=== PATIENT | female | born 1965 | race Caucasian/White ===

== ENCOUNTER 2019-09-22 14:13 | Emergency (ER) | payer MEDICAID ==
[2019-09-22] MEDS ORDERED: Famotidine 20 MG/2 ML SDV IVPUSH ONE (14:14)
--- NOTE | 2019-09-22 14:14 | EDM.PDOC ---
ED HPI GENERAL MEDICAL PROBLEM - General Chief Complaint: Neuro Symptoms/Deficits Stated Complaint: stroke code Time Seen by Provider: 09/22/19 14:14 Source of Information: Reports: Patient, EMS, EMS Notes Reviewed, Significant Other ([place]), Other (Dwayne; [facility]). Denies: Old Records (No [facility] records available) History Limitations: Reports: Altered Mental Status - History of Present Illness INITIAL COMMENTS - FREE TEXT/NARRATIVE: The patient was brought to the emergency room via ambulance with EMT accompaniment with stat Accu-Chek of 77 mg percent prior to arrival to this facility. No other treatment or evaluation were given in route. The patient is an extremely poor historian secondary to her current mental status with multiple nonspecific complaints, including mild diffuse nonspecific headache, intermittent chronic left upper upper chest wall discomfort, and history of possible melena about 3 days ago likely secondary to Pepto-Bismol, which was taken for some mild diarrhea at that time. Majority of the history was taken from her significant other and loss as above the patient was picking up trash as per routine work responsibilities with sudden onset infusion and some combativeness starting at about 13:15 hours this was observed by her significant other and multiple coworkers with no history of fall, head injury, seizure activity, urine/stool incontinence, etc. Her history from her significant other the patient had similar type symptoms about 2 weeks ago and was hospitalized at [facility] in [place] at that time. The patient apparently had a negative COVID-19 screen during that hospitalization. She denies any abdominal pain, UTI symptoms, nausea, recurrence of diarrhea, etc. this time. The patient also denies any recent fever, cough, wheezing, dyspnea, etc.. She denies any recent medication noncompliance with apparent meditation changes during the above hospitalization one week ago. Onset: Today, Sudden Onset Date: 09/22/19 Onset Time: 13:15 Duration: Constant Location: Reports: Head, Chest. Denies: Face, Neck, Abdomen, Back, Upper Extremity, Left, Upper Extremity, Right, Radiates to Quality: Reports: Ache, Same as Previous Episode Severity: Moderate Improves with: Reports: None Worsens with: Reports: None Context: Reports: Other (As above). Denies: Sick Contact, Trauma Associated Symptoms: Reports: Confusion, Chest Pain. 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 Cardiovascular History: Reports: Heart Murmur Gastrointestinal History: Reports: Bowel Obstruction, Pancreatitis, Other (See Below) Other Gastrointestinal History: Bowel obstruction in 2016 requiring surgery as below. OUTSIDE COLLECTOR History: Reports: Dysfunctional Uterine Bleeding, Fibroids, LMP (Approximate): Other (See Below) Other OUTSIDE COLLECTOR History: Surgical menopause secondary to uterine fibroids and ovarian cysts. Musculoskeletal History: Reports: Arthritis, Fracture, Osteoarthritis, Other ( See Below) Other Musculoskeletal History: Left tibial and fibular shaft fractures on requiring surgery as below. Left radial neck elbow fracture in 2019. Neurological History: Reports: Neuropathy, Peripheral, Other (See Below) Other Neuro History: Acute encephalopathy secondary to OTC medications in August 2019 as below Psychiatric History: Reports: Addiction, Anxiety, Bipolar, Depression, Psych Hospitalization(s), Psychosis, Other (See Below) Other Psychiatric History: Last hospitalization in [facility] for bipolar disorder in August 2019. Previous history of inpatient alcohol treatment. History of alcohol and substance abuse with no alcohol use since 2015. OTC medication abuse including dextromethorphan according hospitalization in August 2019 with acute encephalopathy at that time. Endocrine/Metabolic History: Reports: Osteopenia, Other (See Below) Other Endocrine/Metabolic History: Severe hyponatremia with secondary confusion. Hematologic History: Reports: Anemia, Iron Deficiency - Past Surgical History HEENT Surgical History: Reports: Oral Surgery, Other (See Below) Other HEENT Surgeries/Procedures: Complete teeth extraction. GI Surgical History: Reports: Bariatric Procedure, Cholecystectomy, Colon, Other (See Below) Other GI Surgeries/Procedures: Gastric bypass procedure. Unknown type of colon surgery for bowel obstruction in September 2015. Female Surgical History: Reports: Hysterectomy, Other (See Below) Other Female Surgeries/Procedures: Hysterectomy in about 2011 secondary to uterine fibroids. Musculoskeletal Surgical History: Reports: ORIF, Other (See Below) Other Musculoskeletal Surgeries/Procedures:: ORIF including sandy placement of tibial and fibular fracture on 12/05/18. - Past Imaging History Past Imaging History: Reports: CAT Scan (Last CT of the head on 09/07/19 with previous evaluations on 09/02/19, 07/31/18, and 09/11/13.), Mammogram (Last on ), Ultrasound (Pelvic ultrasound on 11/25/11) ED ROS GENERAL - Review of Systems Review Of Systems: Unable To Obtain Reason Not Obtained: Patient confusion as below. ED EXAM, NEURO - Physical Exam Exam: See Below Exam Limited By: Altered Mental Status General Appearance: Alert, Anxious (Mild to moderate) Eye Exam: Bilateral Eye: EOMI, Normal Fundi (Soft contact lenses. No nystagmus) , Normal Inspection, PERRL Ears: Normal External Exam, Normal Canal, Hearing Grossly Normal, Normal TMs Nose: Normal Inspection, Normal Mucosa, No Blood Throat/Mouth: Normal Inspection, Normal Lips, Normal Gums, Normal Oropharynx, Normal Voice, No Airway Compromise. No: Normal Teeth (Complete dentures uppers and lowers), Dysphagia, Inflammation, Perioral Cyanosis Head Exam: Atraumatic, Normocephalic. No: Facial Swelling, Facial Tenderness, Sinus Tenderness Neck: Normal Inspection, Supple, Non-Tender, Full Range of Motion, Carotid Bruit (Mild bilateral carotid bruits versus transmitted heart sounds). No: Lymphadenopathy (L), Lymphadenopathy (R), Thyromegaly Respiratory/Chest: No Respiratory Distress, Lungs Clear, Normal Breath Sounds, No Accessory Muscle Use, Chest Non-Tender. No: Pleural Rub, Accessory Muscle Use, Retractions Cardiovascular: Normal Peripheral Pulses, No Edema, No Gallop, No JVD, No Rub, Tachycardia (Regular rhythm), Systolic Murmur (Mild 1/6 TRISTON of the aortic valve) . No: No Murmur, Gallop/S3, Gallop/S4 GI/Abdominal: Normal Bowel Sounds, Soft, Non-Tender, No Organomegaly, No Distention, No Abnormal Bruit, No Mass, Pelvis Stable, Other (Obese). No: Guarding (Female) Exam: Deferred Rectal (Female) Exam: Normal Rectal Tone, Heme - Stool, Hemorrhoids (Grade 12 internal/external). No: Black Stool, Bloody Stool, Fecal Impaction, Mass, Perirectal Abscess, Tenderness (No David space tenderness) Neurological: Alert, Normal Dorsiflexion, CN II-XII Intact, Normal Plantar Flexion, Normal Reflexes, Abnormal Gait (Unsteadinessmild), Other (Negative finger to nose and pronation rotators tests with excellent reverse thought processes. Oriented to person, month and year only. Some Log[place], confusion, and borderline psychosis. No hemiparesis noted, including in the facial region.) . No: Normal Mood/Affect (Mild to moderate anxiety and praying throughout the visit), Oriented x 3, Abnormal Finger to Nose, Babinski, Tremor Back Exam: Normal Inspection, Full Range of Motion. No: CVA Tenderness (L), CVA Tenderness (R), Muscle Spasm Extremities: Normal Inspection, Normal Range of Motion, Non-Tender, No Pedal Edema, Normal Capillary Refill. No: Saira's Sign Psychiatric: Anxious (Mild to moderate) Skin Exam: Warm, Dry, Intact, Normal Color, No Rash. No: Diaphoretic, Wound/ Incision EKG INTERPRETATION EKG Date: 09/22/19 Time: 14:24 Rhythm: Other (Sinus tachycardia) Rate (Beats/Min): 109 [place]: Normal (Neutral) P-Wave: Enlarged (Diffuse biphasic P wavesmoderate) QRS: RBBB (QRS interval of 0.14 seconds representing a complete right bundle branch block/bifascicular bundle-branch block) ST-T: Other (T inversion in leads V1 and V2) QT: Normal ID/PQ Interval: 0.16 seconds with pulmonary hypertension by EKG Comparison: NA - No Prior EKG EKG Interpretation Comments: 1. Sinus tachycardia 2. Complete right bundle branch block/bifascicular bundle-branch block 3. Borderline anterior wall ischemia 4. Left atrial enlargement Course - Vital Signs Last Recorded V/S: See Stroke Code Sheet - Orders/Labs/Meds Orders: Active Orders 24 hr Category Date Time Status Blood Glucose Check, Bedside [RC] STAT Care 09/22/19 14:14 Active Cardiac Monitoring [RC] STAT Care 09/22/19 14:14 Active Communication Order [RC] PER UNIT ROUTINE Care 09/22/19 14:14 Active EKG Documentation Completion [RC] ASDIRECTED Care 09/22/19 14:14 Active NIH Stroke Scale [RC] ASDIRECTED Care 09/22/19 14:14 Active Oxygen Therapy, ED [RC] CONTINUOUS Care 09/22/19 14:14 Active Peripheral IV Care [RC] . DIRECTED Care 09/22/19 14:14 Active Pulse Oximetry [RC] CONTINUOUS Care 09/22/19 14:14 Active Up With Assistance [RC] ASDIRECTED Care 09/22/19 14:14 Active Vital Signs [RC] PFP Care 09/22/19 14:14 Active Nothing per Oral Now Diet [DIET] Diet 09/22/19 Breakfast Active Chest 1V Frontal [CR] Stat Exams 09/22/19 14:14 Taken Head wo Cont [CT] Stat Exams 09/22/19 14:14 Taken CULTURE BLOOD [BC] Stat Lab 09/22/19 14:15 Received CULTURE BLOOD [BC] Stat Lab 09/22/19 15:05 Received CULTURE URINE [RM] Routine Lab 09/22/19 14:40 Received PROLACTIN [REF] Stat Lab 09/22/19 14:15 Received Sodium Chloride 0.9% [Normal Saline] 1,000 ml Med 09/22/19 16:00 Active IV ASDIRECTED Sodium Chloride 0.9% [Saline Flush] Med 09/22/19 14:14 Active 10 ml FLUSH ASDIRECTED PRN Blood Culture x2 Reflex Set [OM.PC] Urgent Oth 09/22/19 14:56 Ordered Obtain Past Medical Record [OM.PC] Stat Oth 09/22/19 14:14 Active Peripheral IV Insertion Adult [OM.PC] Stat Oth 09/22/19 14:14 Ordered Resuscitation Status Stat Resus Stat 09/22/19 14:14 Ordered Medication Orders Sodium Chloride (Normal Saline) 1,000 mls @ 100 mls/hr IV ASDIRECTED HEIDI Sodium Chloride (Saline Flush) 10 ml FLUSH ASDIRECTED PRN PRN Reason: Keep Vein Open Last Admin: 09/22/19 15:35 Dose: 10 ml Admin: 09/22/19 14:28 Dose: 10 ml Labs: Laboratory Tests 09/22/19 09/22/19 09/22/19 Range/Units 14:15 14:15 14:15 WBC 12.0 H (4.0-10.2) K/uL RBC 3.43 L (3.77-5.09) M/uL Hgb 7.4 L* (11.7-15.5) g/dL Hct 24.4 L* (34.0-46.0) % MCV 71.1 L (84.0-98.0) fL MCH 21.6 L (28.2-33.3) pg MCHC 30.3 L (31.7-36.0) g/dL RDW 18.7 H (11.2-14.1) % Plt Count 498 H (150-350) K/uL Neut % (Auto) 85.8 H (45.0-80.0) % Lymph % (Auto) 7.9 L (10.0-50.0) % Sw[place] % (Auto) 6.1 (2.0-14.0) % Eos % (Auto) 0.0 (0.0-5.0) % Baso % (Auto) 0.2 (0.0-2.0) % Neut # (Auto) 10.33 H (1.40-7.00) K/uL Lymph # (Auto) 0.95 (0.50-3.50) K/uL Swain # (Auto) 0.74 (0.00-1.00) K/uL Eos # (Auto) 0.00 (0.00-0.50) K/uL Baso # (Auto) 0.02 (0.00-0.20) K/uL PT 9.4 L (9.5-12.0) SEC INR 0.9 APTT 26.8 (24.5-32.8) SEC D-Dimer, Quantitative 388 (0-400) ng/mL Sodium (136-145) mmol/L Potassium (3.5-5.1) mmol/L Chloride (98-107) mmol/L Carbon Dioxide (21.0-32.0) mmol/L BUN (7-18) mg/dL Creatinine (0.51-1.17) mg/dL Est Cr Clr Drug Dosing Estimated GFR (MDRD) mL/min Glucose (74-106) mg/dL POC Glucose (65-110) mg/dl Lactic Acid (0.4-2.0) mmol/L Uric Acid (2.6-7.2) mg/dL Calcium (8.5-10.1) mg/dL Magnesium (1.8-2.4) mg/dL Total Bilirubin (0.2-1.0) mg/dL AST (15-37) U/L ALT (12-78) U/L Alkaline Phosphatase (46-116) IU/L Creatine Kinase (26-308) U/L Creatine Kinase Index (0.0-2.5) % CK-MB (CK-2) (0.00-3.60) ng/mL Troponin I (0.000-0.056) ng/mL NT-Pro-B Natriuret Pep (0-125) pg/mL Total Protein (6.4-8.2) g/dL Albumin (3.4-5.0) g/dL TSH, Ultra Sensitive (0.358-3.740) mIU/mL HCG, Qual (NEGATIVE) Specimen Type Urine Color Urine Appearance Urine pH (5.0-9.0) Ur Specific [place] (1.005-1.030) Urine Protein (NEGATIVE) mg/dL Urine Glucose (UA) (NEGATIVE) mg/dL Urine Ketones (NEGATIVE) mg/dL Urine Occult Blood (NEGATIVE) Urine Nitrite (NEGATIVE) Urine Bilirubin (NEGATIVE) Urine Urobilinogen (0.2-1.0) E.U./dL Ur Leukocyte Esterase (NEGATIVE) Urine RBC /HPF Urine WBC /HPF Ur Epithelial Cells /LPF Urine Bacteria (NONE TO FEW) /HPF Urine Opiates Screen (NEGATIVE) Ur Buprenorphine Scrn (NEGATIVE) Ur Oxycodone Screen (NEGATIVE) Ur EDDP (Meth Metab) (NEGATIVE) Ur Barbiturates Screen (NEGATIVE) Ur Tricyclics Screen (NEGATIVE) Ur Amphetamine Screen (NEGATIVE) U Methamphetamines Scrn (NEGATIVE) Urine MDMA Screen (NEGATIVE) U Benzodiazepines Scrn (NEGATIVE) U Cocaine Metab Screen (NEGATIVE) U Marijuana (THC) Screen (NEGATIVE) Ethyl Alcohol (0.000-0.080) g/dL 09/22/19 09/22/19 09/22/19 Range/Units 14:15 14:15 14:15 WBC (4.0-10.2) K/uL RBC (3.77-5.09) M/uL Hgb (11.7-15.5) g/dL Hct (34.0-46.0) % MCV (84.0-98.0) fL MCH (28.2-33.3) pg MCHC (31.7-36.0) g/dL RDW (11.2-14.1) % Plt Count (150-350) K/uL Neut % (Auto) (45.0-80.0) % Lymph % (Auto) (10.0-50.0) % Swain % (Auto) (2.0-14.0) % Eos % (Auto) (0.0-5.0) % Baso % (Auto) (0.0-2.0) % Neut # (Auto) (1.40-7.00) K/uL Lymph # (Auto) (0.50-3.50) K/uL [place] # (Auto) (0.00-1.00) K/uL Eos # (Auto) (0.00-0.50) K/uL Baso # (Auto) (0.00-0.20) K/uL PT (9.5-12.0) SEC INR APTT (24.5-32.8) SEC D-Dimer, Quantitative (0-400) ng/mL Sodium 122 L* (136-145) mmol/L Potassium 3.6 (3.5-5.1) mmol/L Chloride 89 L (98-107) mmol/L Carbon Dioxide 17.2 L (21.0-32.0) mmol/L BUN 11 (7-18) mg/dL Creatinine 0.54 (0.51-1.17) mg/dL Est Cr Clr Drug Dosing TNP Estimated GFR (MDRD) > 60 mL/min Glucose 88 (74-106) mg/dL POC Glucose (65-110) mg/dl Lactic Acid 2.4 H (0.4-2.0) mmol/L Uric Acid 1.4 L (2.6-7.2) mg/dL Calcium 7.5 L (8.5-10.1) mg/dL Magnesium 1.5 L (1.8-2.4) mg/dL Total Bilirubin 0.4 (0.2-1.0) mg/dL AST 17 (15-37) U/L ALT 19 (12-78) U/L Alkaline Phosphatase 97 (46-116) IU/L Creatine Kinase 141 (26-308) U/L Creatine Kinase Index 2.6 H (0.0-2.5) % CK-MB (CK-2) 3.70 H (0.00-3.60) ng/mL Troponin I 0.000 (0.000-0.056) ng/mL NT-Pro-B Natriuret Pep 175 H (0-125) pg/mL Total Protein 7.1 (6.4-8.2) g/dL Albumin 3.8 (3.4-5.0) g/dL TSH, Ultra Sensitive 1.978 (0.358-3.740) mIU/mL HCG, Qual Negative (NEGATIVE) Specimen Type Urine Color Urine Appearance Urine pH (5.0-9.0) Ur Specific [place] (1.005-1.030) Urine Protein (NEGATIVE) mg/dL Urine Glucose (UA) (NEGATIVE) mg/dL Urine Ketones (NEGATIVE) mg/dL Urine Occult Blood (NEGATIVE) Urine Nitrite (NEGATIVE) Urine Bilirubin (NEGATIVE) Urine Urobilinogen (0.2-1.0) E.U./dL Ur Leukocyte Esterase (NEGATIVE) Urine RBC /HPF Urine WBC /HPF Ur Epithelial Cells /LPF Urine Bacteria (NONE TO FEW) /HPF Urine Opiates Screen (NEGATIVE) Ur Buprenorphine Scrn (NEGATIVE) Ur Oxycodone Screen (NEGATIVE) Ur EDDP (Meth Metab) (NEGATIVE) Ur Barbiturates Screen (NEGATIVE) Ur Tricyclics Screen (NEGATIVE) Ur Amphetamine Screen (NEGATIVE) U Methamphetamines Scrn (NEGATIVE) Urine MDMA Screen (NEGATIVE) U Benzodiazepines Scrn (NEGATIVE) U Cocaine Metab Screen (NEGATIVE) U Marijuana (THC) Screen (NEGATIVE) Ethyl Alcohol 0.001 (0.000-0.080) g/dL 09/22/19 09/22/19 09/22/19 Range/Units 14:17 14:40 14:40 WBC (4.0-10.2) K/uL RBC (3.77-5.09) M/uL Hgb (11.7-15.5) g/dL Hct (34.0-46.0) % MCV (84.0-98.0) fL MCH (28.2-33.3) pg MCHC (31.7-36.0) g/dL RDW (11.2-14.1) % Plt Count (150-350) K/uL Neut % (Auto) (45.0-80.0) % Lymph % (Auto) (10.0-50.0) % [place] % (Auto) (2.0-14.0) % Eos % (Auto) (0.0-5.0) % Baso % (Auto) (0.0-2.0) % Neut # (Auto) (1.40-7.00) K/uL Lymph # (Auto) (0.50-3.50) K/uL [place] # (Auto) (0.00-1.00) K/uL Eos # (Auto) (0.00-0.50) K/uL Baso # (Auto) (0.00-0.20) K/uL PT (9.5-12.0) SEC INR APTT (24.5-32.8) SEC D-Dimer, Quantitative (0-400) ng/mL Sodium (136-145) mmol/L Potassium (3.5-5.1) mmol/L Chloride (98-107) mmol/L Carbon Dioxide (21.0-32.0) mmol/L BUN (7-18) mg/dL Creatinine (0.51-1.17) mg/dL Est Cr Clr Drug Dosing Estimated GFR (MDRD) mL/min Glucose (74-106) mg/dL POC Glucose 78 (65-110) mg/dl Lactic Acid (0.4-2.0) mmol/L Uric Acid (2.6-7.2) mg/dL Calcium (8.5-10.1) mg/dL Magnesium (1.8-2.4) mg/dL Total Bilirubin (0.2-1.0) mg/dL AST (15-37) U/L ALT (12-78) U/L Alkaline Phosphatase (46-116) IU/L Creatine Kinase (26-308) U/L Creatine Kinase Index (0.0-2.5) % CK-MB (CK-2) (0.00-3.60) ng/mL Troponin I (0.000-0.056) ng/mL NT-Pro-B Natriuret Pep (0-125) pg/mL Total Protein (6.4-8.2) g/dL Albumin (3.4-5.0) g/dL TSH, Ultra Sensitive (0.358-3.740) mIU/mL HCG, Qual (NEGATIVE) Specimen Type [place] Urine Color Yellow Urine Appearance Clear Urine pH 5.5 (5.0-9.0) Ur Specific [place] 1.020 (1.005-1.030) Urine Protein Negative (NEGATIVE) mg/dL Urine Glucose (UA) 500 H (NEGATIVE) mg/dL Urine Ketones Negative (NEGATIVE) mg/dL Urine Occult Blood Negative (NEGATIVE) Urine Nitrite Negative (NEGATIVE) Urine Bilirubin Negative (NEGATIVE) Urine Urobilinogen 0.2 (0.2-1.0) E.U./dL Ur Leukocyte Esterase Negative (NEGATIVE) Urine RBC Not seen /HPF Urine WBC 0-5 /HPF Ur Epithelial Cells Occasional /LPF Urine Bacteria Few (NONE TO FEW) /HPF Urine Opiates Screen Negative (NEGATIVE) Ur Buprenorphine Scrn Negative (NEGATIVE) Ur Oxycodone Screen Positive H (NEGATIVE) Ur EDDP (Meth Metab) Negative (NEGATIVE) Ur Barbiturates Screen Negative (NEGATIVE) Ur Tricyclics Screen Negative (NEGATIVE) Ur Amphetamine Screen Negative (NEGATIVE) U Methamphetamines Scrn Negative (NEGATIVE) Urine MDMA Screen Negative (NEGATIVE) U Benzodiazepines Scrn Negative (NEGATIVE) U Cocaine Metab Screen Negative (NEGATIVE) U Marijuana (THC) Screen Negative (NEGATIVE) Ethyl Alcohol (0.000-0.080) g/dL Meds: Medications Generic Name Dose Route Start Last Admin Trade Name Freq PRN Reason Stop Dose Admin Sodium Chloride 1,000 mls @ 100 mls/hr 09/22/19 16:00 Normal Saline IV ASDIRECTED HEIDI Sodium Chloride 10 ml 09/22/19 14:14 09/22/19 15:35 Saline Flush FLUSH 10 ml ASDIRECTED PRN Administration Keep Vein Open Discontinued Medications Generic Name Dose Route Start Last Admin Trade Name Freq PRN Reason Stop Dose Admin Famotidine 40 mg 09/22/19 14:14 09/22/19 14:28 Pepcid IVPUSH 09/22/19 14:15 40 mg ONETIME ONE Administration Ceftriaxone Sodium 1 gm/ 100 mls @ 200 mls/hr 09/22/19 14:55 09/22/19 15:07 Sodium Chloride IV 09/22/19 15:24 200 mls/hr ONETIME ONE Administration Lactated Ringer's 1,000 mls @ 999 mls/hr 09/22/19 14:55 Ringers, Lactated IV 09/22/19 15:55 .BOLUS ONE Sodium Chloride 500 mls @ 100 mls/hr 09/22/19 15:15 09/22/19 15:35 Sodium Chloride 3% IV 100 mls/hr ASDIRECTED HEIDI Administration Labetalol HCl 10 mg 09/22/19 14:23 09/22/19 14:28 Normodyne IVPUSH 09/22/19 14:24 10 mg ONETIME ONE Administration Protocol - Radiology Interpretation Free Text/Narrative:: telemetry monitor showed initial sinus tachycardia in the 100s with improvement to the 70-80s after Normodyne was given. No other ectopy or arrhythmia. Chest X-ray, portable, shows some mild pulmonary obstructive disease and pulmonary fibrosis particularly in the left lower lobe with questionable pulmonary nodules in this area versus atelectasis. No pulmonary infiltrates pneumothorax, cardiomegaly, significant CHF, etc. Mild prominence of the proximal aortic arch. Telephone consultation at 14:32 hours with the radiology department at [facility] in [place]. Preliminary verbal report of noncontrast CT scan of the head was negative for any acute changes. CT Results Date: 09/22/19 CT Results Time: 14:32 Departure - Departure Time of Disposition: 17:21 Disposition: DC/Tfer to [facility] 02 Condition: Fair Clinical Impression: Confusion, Hypertension, Complete right bundle branch block (RBBB), Hyponatremia, Anemia, Mixed anxiety depressive disorder, Fever, Elevated lactic acid level, Hypomagnesemia, Hypokalemia, Hypocalcemia - Discharge Information *PRESCRIPTION DRUG MONITORING PROGRAM REVIEWED*: Not Applicable *COPY OF PRESCRIPTION DRUG MONITORING REPORT IN PATIENT BRIDGETT: Not Applicable Referrals: PCP,None [Primary Care Provider] - Forms: ED Department Discharge, Interfacility Transfer [facility] Sepsis Event Note - Focused Exam Date Exam was Performed: 09/22/19 Time Exam was Performed: 17:23 - Problem List & Annotations (1) Confusion SNOMED Code(s): 319754961 Code(s): R41.0 - DISORIENTATION, UNSPECIFIED Status: Acute Priority: High Current Visit: No Onset Date: 09/22/19 Annotation/Comment:: Symptoms are similar to those prior to recent hospitalization at [facility] about 2 weeks ago by her boyfriend's history. Note significant hyponatremia as below. CT scan of the head was negative with consideration of MRI of the brain, neurologic consultation, etc. depending on her clinical course. Note that a stroke code was called in this facility immediately upon patient's arrival secondary to history as above. Initial telephone consultation with [facility] at 15:15 hours with subsequent telephone consultation at 15:[address] Sterling, hospitalist, who does accept the patient for direct admission to their [place] campus. She is requesting that the 3% sodium chloride infusion be changed to normal saline at 100 mls per hour, which was continued during transfer by means of ambulance with glue mixer accompaniment. Some delay of patient transfer secondary to bed availability without sequelae. Stable neurological status and vital signs prior to patient transfer. Sodium chloride 3 % IV infusion was started earlier in the emergency room with only 38 ml received prior to change of her IV solution as above. She apparently had a previous history of hyponatremia during recent hospitalization. Conflicting history with patient previously denying recent dextromethorphan use after recent discharge from [facility], however she may have had recent use of this medication. In addition, note positive urine drug screen for narcotics as above. Contact information with patient's significant other, Frank, at . (2) Complete right bundle branch block (RBBB) SNOMED Code(s): 923953774 Code(s): I45.10 - UNSPECIFIED RIGHT BUNDLE-BRANCH BLOCK Status: Acute Priority: Medium Current Visit: No Onset Date: 09/22/19 Annotation/Comment :: No chest pressure or true anginal type symptoms with nonspecific left superior chest wall discomfort. Cardiology consultation, standard rule out ID orders, etc. depending on her clinical course. Note borderline bifascicular bundle-branch block. Chest Pain protocol was not initiated in the emergency room secondary to absence of anginal symptoms as above. Note mild BNP, CK-MB and cardiac index elevation with normal troponin I. Borderline anterior wall ischemic changes however note possibly artifactual secondary to her bundle- branch block. (3) Elevated lactic acid level SNOMED Code(s): 5788126 Code(s): R79.89 - OTHER SPECIFIED ABNORMAL FINDINGS OF BLOOD CHEMISTRY Status: Acute Priority: High Current Visit: No Onset Date: 09/22/19 Annotation/Comment:: Blood Cultures 2 were collected with urine specimen set up for culture and sensitivity. Note negative COVID-19 drain at [facility] about 2 weeks ago with this likely to be repeated as a rapid screen evaluation upon arrival to their facility. No other known exposure to infection or source of infection can be determined at this time. Patient does meet sepsis criteria with 1 g of IV Rocephin initiated in the emergency room prior to collection of blood cultures, etc. as above. Continue sepsis protocol by accepting providers. (4) Anemia SNOMED Code(s): 589743647 Code(s): D64.9 - ANEMIA, UNSPECIFIED Status: Acute Priority: High Current Visit: No Onset Date: 09/22/19 Annotation/Comment:: High-dose IV Pepcid given as GI prophylaxis. No direct evidence of acute GI bleed despite some possible melena a few days ago possibly secondary to milk of magnesia. Further workup and evaluation by accepting providers. Note negative Hemoccult as above. Qualifiers: Anemia type: unspecified type Qualified Code(s): D64.9 - Anemia, unspecified (5) Fever SNOMED Code(s): 928023934 Code(s): R50.9 - FEVER, UNSPECIFIED Status: Acute Priority: High Current Visit: No Onset Date: 09/22/19 Annotation/Comment:: As above Qualifiers: Fever type: unspecified Qualified Code(s): R50.9 - Fever, unspecified (6) Hypertension SNOMED Code(s): 57274002 Code(s): I10 - ESSENTIAL (PRIMARY) HYPERTENSION Status: Acute Priority: High Current Visit: No Annotation/Comment:: Improved with IV Normodyne with continue medication adjustment by accepting providers. Excellent blood pressures prior to transfer. No previous history of hypertension by limited medical records. Qualifiers: Hypertension type: essential hypertension Qualified Code(s): I10 - Essential (primary) hypertension (7) Hypomagnesemia SNOMED Code(s): 898125921 Code(s): E83.42 - HYPOMAGNESEMIA Status: Acute Priority: High Current Visit: Yes Onset Date: 09/22/19 Annotation/Comment:: Consider magnesium supplementation including IV magnesium sulfate after arrival the patient to [facility]. (8) Hyponatremia SNOMED Code(s): 60321993 Code(s): E87.1 - HYPO-OSMOLALITY AND HYPONATREMIA Status: Acute Priority : High Current Visit: No Onset Date: 09/22/19 Annotation/Comment:: As above (9) Mixed anxiety depressive disorder SNOMED Code(s): 159926270 Code(s): F41.8 - OTHER SPECIFIED ANXIETY DISORDERS Status: Chronic Priority: High Current Visit: No Annotation/Comment:: Moderate control. Continue medication adjustment by accepting providers. (10) Hypocalcemia SNOMED Code(s): 7234032 Code(s): E83.51 - HYPOCALCEMIA Status: Acute Priority: Medium Current Visit: No Onset Date: 09/22/19 Annotation/Comment:: Observe for now. Further treatment and workup by accepting providers. - Problem List Review Problem List Initiated/Reviewed/Updated: Yes - My Orders Last 24 Hours: My Active Orders 09/22/19 14:14 Blood Glucose Check, Bedside [RC] STAT Cardiac Monitoring [RC] STAT Communication Order [RC] PER UNIT ROUTINE EKG Documentation Completion [RC] ASDIRECTED NIH Stroke Scale [RC] ASDIRECTED Oxygen Therapy, ED [RC] CONTINUOUS Peripheral IV Care [RC] . DIRECTED Pulse Oximetry [RC] CONTINUOUS Up With Assistance [RC] ASDIRECTED Vital Signs [RC] PFP Chest 1V Frontal [CR] Stat Head wo Cont [CT] Stat Sodium Chloride 0.9% [Saline Flush] 10 ml FLUSH ASDIRECTED PRN Obtain Past Medical Record [OM.PC] Stat Peripheral IV Insertion Adult [OM.PC] Stat Resuscitation Status Stat 09/22/19 14:15 CULTURE BLOOD [BC] Stat PROLACTIN [REF] Stat 09/22/19 14:40 CULTURE URINE [RM] Routine 09/22/19 14:56 Blood Culture x2 Reflex Set [OM.PC] Urgent 09/22/19 15:05 CULTURE BLOOD [BC] Stat 09/22/19 16:00 Sodium Chloride 0.9% [Normal Saline] 1,000 ml IV ASDIRECTED 09/22/19 Breakfast Nothing per Oral Now Diet [DIET] - Assessment/Plan Last 24 Hours: My Active Orders 09/22/19 14:14 Blood Glucose Check, Bedside [RC] STAT Cardiac Monitoring [RC] STAT Communication Order [RC] PER UNIT ROUTINE EKG Documentation Completion [RC] ASDIRECTED NIH Stroke Scale [RC] ASDIRECTED Oxygen Therapy, ED [RC] CONTINUOUS Peripheral IV Care [RC] . DIRECTED Pulse Oximetry [RC] CONTINUOUS Up With Assistance [RC] ASDIRECTED Vital Signs [RC] PFP Chest 1V Frontal [CR] Stat Head wo Cont [CT] Stat Sodium Chloride 0.9% [Saline Flush] 10 ml FLUSH ASDIRECTED PRN Obtain Past Medical Record [OM.PC] Stat Peripheral IV Insertion Adult [OM.PC] Stat Resuscitation Status Stat 09/22/19 14:15 CULTURE BLOOD [BC] Stat PROLACTIN [REF] Stat 09/22/19 14:40 CULTURE URINE [RM] Routine 09/22/19 14:56 Blood Culture x2 Reflex Set [OM.PC] Urgent 09/22/19 15:05 CULTURE BLOOD [BC] Stat 09/22/19 16:00 Sodium Chloride 0.9% [Normal Saline] 1,000 ml IV ASDIRECTED 09/22/19 Breakfast Nothing per Oral Now Diet [DIET] Assessment:: As above Plan: As above. Extensive precautions were given to the patient and her significant other, who are in agreement with the treatment plan. Ambulance transfer to [facility] in [place] as above.
[2019-09-22] MEDS ORDERED: Labetalol 20 MG/4 ML Syringe IVPUSH ONE (14:23)
[2019-09-22] MEDS: Sodium Chloride 0.9% 10 ML Syringe FLUSH PRN ×2 (14:28→15:35)
[2019-09-22] MEDS ORDERED: Lactated Ringers 1,000 ML IV ONE (14:55)
[2019-09-22] MEDS ORDERED: cefTRIAXone 1 GM in Sodium Chloride 0.9% 100 ML IV ONE (14:55)
[2019-09-22 15:02] LABS: CHLORIDE,CL 89 mmol/L (98-107)
[2019-09-22 15:08] LABS: PTT,PARTIAL THROMBOPLSTIN TIME 26.8 SEC (24.5-32.8)
[2019-09-22 15:09] LABS: SODIUM,NA 122 mmol/L (136-145)
[2019-09-22] MEDS ORDERED: Sodium Chloride 3% 500 ML IV SCH (15:15)
[2019-09-22 15:25] LABS: BARBITURATE SCREEN,URINE NEGATIVE (NEGATIVE); BENZODIAZEPINES SCREEN,URINE NEGATIVE (NEGATIVE); EDDP,URINE SCREEN NEGATIVE (NEGATIVE); TCA SCREEN,URINE NEGATIVE (NEGATIVE); THC SCREEN,URINE 50 NG/ML NEGATIVE (NEGATIVE)
[2019-09-22] MEDS ORDERED: Sodium Chloride 0.9% 1,000 ML IV SCH (16:00)
== END 2019-09-22 17:21 ==
LOC: LL.ED 14:13
DX: F41.8 Other specified anxiety disorders (principal); E87.6 Hypokalemia; E83.42 Hypomagnesemia; D64.9 Anemia, unspecified; E87.1 Hypo-osmolality and hyponatremia; I45.10 Unspecified right bundle-branch block; I10 Essential (primary) hypertension; R74.0 Nonspecific elevation of levels of transaminase and lactic acid dehydrogenase [LDH]; E83.51 Hypocalcemia
CPT/HCPCS: 36415; 70450; 71045; 80053; 80305; 80307; 81001; 82272; 82550; 82553; 82962; 83605; 83735; 83880; 84146; 84443; 84484; 84550; 84703; 85025; 85379; 85610; 85730; 87040; 87086; 93005; 96361; 96365; 96375; 99285; J0696; J3490; J7040; J7050; J7120